=== PATIENT | female | born 1995 | race African-American/Black ===

== ENCOUNTER 2025-05-27 12:13 | Emergency (ER) | payer MEDICAID, OTHER ==
[~2025-05-27] VITALS: Ht 165.1 cm; Wt 90.1 kg
[2025-05-27 12:15] VITALS: BP 149/109; PULSE 124; RESP 21; TEMP 98.8; O2SAT 100
[2025-05-27 14:21] LABS: Hematocrit 36.2 % (36.0-46.0); Hemoglobin 12.0 g/dL (12.2-16.2); Mean Corpuscular Hemoglobin 29.1 pg (28.0-32.0); Mean Corpuscular Volume 87.9 fL (80.0-100.0); Nucleated Red Blood Cells % 0.0 %
--- NOTE | 2025-05-27 14:24 | ED.PDOC ---
OPHTHALMIC MEDICAL TECHNICIAN HPI Comments A 30 YEAR OLD FEMALE PRESENTS TO THE ED WITH COMPLAINT OF VAGINAL BLEEDING AND CLEAR VAGINAL DISCHARGE. PATIENT STATES SHE IS CURRENTLY ABOUT 15 WEEKS AND BEGAN TO EXPERIENCE VAGINAL BLEEDING AND LEAKING A CLEAR VAGINAL DISCHARGE TODAY. PATIENT REPORTS SHE ALSO HAS A PELVIC CRAMPING WITH THESE SYMPTOMS. PATIENT IS CONCERNED THAT HER CLEAR VAGINAL DISCHARGE MAY BE AMNIOTIC FLUID, BUT IS NOT SURE. PATIENT DENIES DYSURIA, HEMATURIA, FEVER, CHILLS, SHORTNESS OF BREATH, CHEST PAIN, ABDOMINAL PAIN, NAUSEA, VOMITING, HEADACHE, OR OTHER COMPLAINTS. NO OTHER SYMPTOMS OR MODIFYING FACTORS AT THIS TIME. PATIENT IS ALERT, ORIENTED X 4, AND HAS STEADY GAIT. Chief Complaint: Vaginal Bleed Time Seen by MD: 12:46 Reviewed Notes: Nurses Notes, Medications, Allergies Allergies: Coded Allergies: NO KNOWN ALLERGIES (Unverified , 05/27/25) Information Source: Patient Mode of Arrival: Ambulatory Timing: Hours Prehospital treatment: None Severity: Moderate Vaginal Discharge: None Vaginal Lesions: None Bleeding Quality: Bright Red Vaginal Mass: None Onset Of Mass/Bleeding: Spontaneous Sexual Activity: Last Consensual [place]: Unknown Control: None History of: Current Blood Type: Unknown Symptoms of Possible : None Associated Signs and Symptoms: Vaginal Bleeding, Cramping Past Medical History PAST MEDICAL HISTORY: Denies Surgical History: Denies all surgeries OUTSIDE SALES PROFESSIONAL History: No Pertinent OUTSIDE SALES PROFESSIONAL History Family History Family History: Reviewed,noncontributory to illness Social History Smoker: Non-Smoker Alcohol: Denies ETOH Use Drugs: Denies Drug Use Lives In: Home Constitutional: denies: chills, diaphoresis, fatigue, fever, malaise, sweats, weakness, others EENTM: denies: blurred vision, double vision, ear bleeding, ear discharge, ear drainage, ear pain, ear ringing, eye pain, eye redness, hearing loss, mouth pain, mouth swelling, nasal discharge, nose bleeding, nose congestion, nose pain, photophobia, tearing, throat pain, throat swelling, voice changes, others Respiratory: denies: cough, hemoptysis, orthopnea, SOB at rest, shortness of breath, SOB with excertion, stridor, wheezing, others Cardiovascular: denies: chest pain, dizzy spells, diaphoresis, Dyspnea on exertion, edema, irregular heart beat, left arm pain, lightheadedness, palpitations, PND, syncope, others Gastrointestinal: denies: abdomen distended, abdominal pain, blood streaked bowels, constipated, diarrhea, dysphagia, difficulty swallowing, hematemesis, m evette, nausea, poor appetite, poor fluid intake, rectal bleeding, rectal pain, vomiting, others Genitourinary: reports: abnormal vagina bleeding, pain (PELVIC CRAMPING), vagina discharge; denies: burning, dyspareunia, dysuria, flank pain, frequency, hematuria, incontinence, , urgency, others Neurological: denies: dizziness, fainting, headache, left sided numbness, left sided weakness, numbness, paresthesia, pre-existing deficit, right sided numbness, right sided weakness, seizure, speech problems, tingling, tremors, wea kness, others Musculoskeletal: denies: back pain, gout, joint pain, joint swelling, muscle pain, muscle stiffness, neck pain, others Integumetry: denies: bruises, change in color, change in hair/nails, dryness, l aceration, lesions, lumps, rash, wounds, others Allergic/Immunocompromised: denies: Difficulty Healing, Frequent Infections, Hives, Itching, others Hematologic/Lymphatic: denies: anemia, blood clots, easy bleeding, easy bruising, swollen glands, others Endocrine: denies: excessive hunger, excessive sweating, excessive thirst, excessive urination, flushing, intolerance to cold, intolerance to heat, unexplained weight gain, unexplained weight loss, others Psychiatric: denies: anxiety, bipolar disorder, depression, hopeless, panic disorder, schizophrenia, sleepless, suicidal, others All Other Systems: Reviewed and Negative Physical Exam General Appearance: Mild Distress, Other (ANXIOUS AND HOSTILE) HEENT: Normal ENT Inspection, PERRL/EOMI, Pharynx Normal, TMs Normal Neck: Full Range of Motion, Non-Tender, Normal, Normal Inspection Respiratory: Chest Non-Tender, Lungs Clear, No Accessory Muscle Use, No Respiratory Distress, Normal Breath Sounds Cardiovascular: No Edema, No JVD, No Murmur, No Gallop, Normal Peripheral Pulses, Regular Rate/Rhythm Breast Exam: Deferred Gastrointestinal: No Organomegaly, Non Tender, No Pulsatile Mass, Normal Bowel Sounds, Soft Genitalia: Deferred Pelvic: Vaginal Bleeding (MILD VAGINAL BLEEDING WITH CLEAR DISCHARGE NOTED.) Rectal: Deferred Extremities: No calf tenderness, Normal capillary refill, Normal inspection, Normal range of motion, Non-tender, No pedal edema Musculoskeletal : Apperance: Normal Neurologic: Alert, nutrition consultant II-XII nml as Tested, No Motor Deficits, Normal Affect, Normal Mood, No Sensory Deficits Cerebellar Function: Normal Reflexes: Normal Skin: Dry, Normal Color, Warm Peripheral Pulses: 2+ carotid (R), 2+ carotid (L) Lymphatic: No Adenopathy Was a procedure done? Was a procedure done?: No Differential Diagnosis (OUTSIDE SALES PROFESSIONAL) Vaginal Bleeding: - Complete, - Incomplete, - Threatened, Blood Loss Anemia, UTI, Vaginitis Mass / Lesion: N/A Vaginal Discharge: N/A X-Ray, Labs, Meds, VS Vital Signs Date Time Temp Pulse Resp B/P (MAP) Pulse Ox O2 Delivery O2 Flow Rate FiO2 05/27/25 12:15 98.8 124 21 149/109 100 98.8 Lab Test 05/27/25 13:23 Range/Units White Blood Count 10.6 4.4-10.8 10^3/uL Red Blood Count 4.12 4.0-5.20 10^6/uL Hemoglobin 12.0 L 12.2-16.2 g/dL Hematocrit 36.2 36.0-46.0 % Mean Corpuscular Volume 87.9 80.0-100.0 fL Mean Corpuscular Hemoglobin 29.1 28.0-32.0 pg Mean Corpuscular Hemoglobin Concent 33.1 32.0-36.0 g/dL Red Cell Distribution Width 12.1 11.8-14.3 % Platelet Count 248 140-450 10^3/uL Mean Platelet Volume 9.1 6.9-10.8 fL Neutrophils (%) (Auto) 63.8 37.0-80.0 % Lymphocytes (%) (Auto) 31.1 10.0-50.0 % Monocytes (%) (Auto) 4.9 0.0-12.0 % Eosinophils (%) (Auto) 0.1 0.0-7.0 % Basophils (%) (Auto) 0.1 0.0-2.0 % Neutrophils # (Auto) 6.8 1.6-8.6 10 ^3/uL Lymphocytes # (Auto) 3.3 0.4-5.4 10 ^3/uL Monocytes # (Auto) 0.5 0-1.3 10 ^3/uL Eosinophils # (Auto) 0 0-0.8 10 ^3/uL Basophils # (Auto) 0 0-0.2 10 ^3/uL Nucleated Red Blood Cells 0.0 % Beta HCG, Quantitative 64536.9 H 1.5-4.2 mIU/mL ORDERING PHYSICIAN: CHAPINCITO ALBARRAN PROCEDURE(s): OBUS - OB ULTRASOUND COMP GTR 14 WKS REASON: VAGINAL BLEEDING, 15 WEEKS ORDER NUMBER(s): [id number], ACCESSION NUMBER(s): [id number] OB ULTRASOUND <14 WEEKS: HISTORY: VAGINAL BLEEDING, 15 WEEKS TECHNIQUE: Multiple real-time grayscale sonographic images of the pelvis with duplex Doppler color flow, spectral and M-mode analysis. TRANSDUCERS: Transabdominal FINDINGS: The uterus measures measurements not given The cervix 2.8 cm; normal is 3.0 cm or greater IUP single live fetus at 14 weeks 4 days plus or minus 1 week 0 days heart rate detected at 175 beats per minute. Yolk sac not visualized. Amniotic fluid trace amniotic fluid visualized (0.6 cm) findings suggest ruptured membranes. EFW: 108.78 g +/-16.32 g.; 29.2% GESTATIONAL DATING: BPD: 2.26 cm consistent with 13 weeks 5 days, less than 3% range 12 weeks 4 days 15 weeks 0 days HC: 10.01 cm, GA: 14 weeks 5 days 14.7%, range 13 weeks 3 days 15 weeks 6 days AC: 9.19 cm; GA: 15 weeks 3 days 66.9% range 13 weeks 5 days 17 weeks 0 days FL: 1.52 cm, GA: 14 weeks 3 days, 24.2%, range 13 weeks 1 day-15 weeks 6 days CI: 61.08 range 70.00 - 86.00 HC/AC: 1.09 range 1.07 - 1.37 IMPRESSION: 1. ELISA: 0.6 cm suggesting rupture membranes.Tawana Chávez and Wendy informed of results. 2. 14 weeks 4 days +/-1 weeks 0 days; KARINA: 11/21/2025. 3. FHR: 175 bpm . ATED BY: ARCENIO URENA Jr., DO DICTATED DATE/TIME: 05/27/251456 SIGNED BY: ARCENIO URENA Jr., SIGNED DATE/TIME: 05/27/251456 CC: X-Ray, Labs, Meds, VS Comment EXTERNAL MEDICAL RECORDS REVIEWED: [NONE] INDEPENDENT HISTORIANS: [NONE] SOCIAL DETERMINANTS OF HEALTH: [NONE] LABS ORDERED: CBC, BETA HCG QUANT, UA REVIEWED AND INTERPRETED RESULTS: BHCG QUANT 57,640.9 IMAGING ORDERED: US > OB 14 WKS TREATMENTS ORDERED: NONE PROCEDURES PERFORMED: NONE CRITICAL CARE TIME: NONE I HAVE DISCUSSED THE PATIENT WITH THE ATTENDING PHYSICIAN DR. MAHONEY AND HE AGREES WITH THE PATIENT'S PLAN OF CARE. 1510: I HAVE CONSULTED THE ON-CALL OPHTHALMIC MEDICAL TECHNICIAN DR. CHÁVEZ REGARDING THE PATIENT'S CASE AND IMAGING RESULTS AND SHE HAS SAID THE PATIENT CANNOT BE ADMITTED HERE DUE TO HER STILL HAVING HEART TONES PRESENT, AND A NEED FOR A HIGHER LEVEL OF CARE AND NEEDS TO BE SEEN WITH EITHER [facility] OR [facility] HAVE BETTER CAPABILITIES TO TREAT HER. SHE HAS SAID THE PATIENT CAN GO BY HERSELF TO EITHER ONE OF THESE FACILITIES. 1540: I HAVE INFORMED THE PATIENT OF HER ULTRASOUND RESULTS AND I HAVE OFFERED TO HAVE HER TRANSFERRED FOR A HIGHER LEVEL OF CARE AT A DIFFERENT FACILITY AND THERE WAS NO GUARANTEE TIME FRAME TO HOW LONG IT WOULD TAKE TO TRANSFER HER TO ONE OF THESE FACILITIES. THE PATIENT THEN BEGAN TO BECOME UPSET AND ANGRY WITH STAFF AND BEGAN TO YELL AND USE PROFANITIES AT PROVIDER AND STAFF. PATIENT THEN WALKED OUT OF ED. PATIENT ELOPED. Images Reviewed?: Images reviewed and evaluated by me Time of 1ST Reevaluation: 15:40 Reevaluation 1ST: Improved Consultation: supervisor contact and service clerks (1510: I HAVE CONSULTED THE ON-CALL OPHTHALMIC MEDICAL TECHNICIAN, DR. CHÁVEZ REGADING THIS PATIENT'S CASE AND IMAGING RESULTS AND SHE HAS SAID THE ) Patient Education/Counseling: Diagnosis, Treatment Family Education/Counseling: Diagnosis, Treatment Departure 1 Departure Time of Disposition: 15:40 Impression: Primary Impression: Oligohydramnios in second trimester Qualified Codes: O41.02X0 - Oligohydramnios, second trimester, not applicable or unspecified Disposition: 07 LEFT AWOL/ELOPED Condition: Fair Critical Care Note Critical Care Time?: No Stability Stability form required: No I personally scribed for CHAPINCITO ALBARRAN ([email or web address]) on 05/27/25 at 14:24. Electronically submitted by Colton Larson ([email or web address]). I personally scribed for CHAPINCITO ALBARRAN ([email or web address]) on 05/27/25 at 15:42. Electronically submitted by Colton Larson ([email or web address]). CHAPINCITO ALBARRAN May 27, 2025 14:24
--- NOTE | 2025-05-27 14:59 | DVH ---
OB ULTRASOUND <14 WEEKS: HISTORY: VAGINAL BLEEDING, 15 WEEKS TECHNIQUE: Multiple real-time grayscale sonographic images of the pelvis with duplex Doppler color flow, spectral and M-mode analysis. TRANSDUCERS: Transabdominal FINDINGS: The uterus measures measurements not given The cervix 2.8 cm; normal is 3.0 cm or greater IUP single live fetus at 14 weeks 4 days plus or minus 1 week 0 days heart rate detected at 175 beats per minute. Yolk sac not visualized. Amniotic fluid trace amniotic fluid visualized (0.6 cm) findings suggest ruptured membranes. EFW: 108.78 g +/-16.32 g.; 29.2% GESTATIONAL DATING: BPD: 2.26 cm consistent with 13 weeks 5 days, less than 3% range 12 weeks 4 days 15 weeks 0 days HC: 10.01 cm, GA: 14 weeks 5 days 14.7%, range 13 weeks 3 days 15 weeks 6 days AC: 9.19 cm; GA: 15 weeks 3 days 66.9% range 13 weeks 5 days 17 weeks 0 days FL: 1.52 cm, GA: 14 weeks 3 days, 24.2%, range 13 weeks 1 day-15 weeks 6 days CI: 61.08 range 70.00 - 86.00 HC/AC: 1.09 range 1.07 - 1.37 IMPRESSION: 1. ELISA: 0.6 cm suggesting rupture membranes.Tawana Chávez and Wendy informed of results. 2. 14 weeks 4 days +/-1 weeks 0 days; KARINA: 11/21/2025. 3. FHR: 175 bpm .
== END 2025-05-27 15:43 | disposition left against medical advice (07) ==
LOC: ER 12:13
DX: O20.0 Threatened abortion (principal); O41.02X0 Oligohydramnios, second trimester, not applicable or unspecified; O20.9 Hemorrhage in early pregnancy, unspecified; Z3A.15 15 weeks gestation of pregnancy
CPT/HCPCS: 36415; 76805; 84702; 85025